=== PATIENT | female | born 1935 | race Caucasian/White ===

== ENCOUNTER 2017-05-26 08:28 | Outpatient (CLI) | payer MEDICARE, BC ==
[2017-05-26 09:03] LABS: Anion Gap 12 mmol/L (10-20); BUN (Urea Nitrogen) 17 mg/dL (9.8-20.1); Calc. Creatinine Clearance 0 mL/min (70-130); Carbon Dioxide 29 mmol/L (23-31); Chloride 101 mmol/L (98-107); Estimated GFR-MDRD 86
--- NOTE | 2017-05-26 12:17 | ULT ---
BILATERAL RENAL SONOGRAM: Date: 05/26/17 HISTORY: Cystic mass left kidney. COMPARISON: CT exam from 03/16/16. FINDINGS: The right kidney is 10.8 cm in length and has a normal appearance without evidence of mass, stone, or hydronephrosis. Urinary bladder is unremarkable. The left kidney is 11.5 cm in length. A 1.8 cm parapelvic cyst correlates with the hyperdense cyst on CT from 1 year ago. No solid masses are evident. No hydronephrosis. IMPRESSION: Allowing for differences in technique, the cyst of the left kidney is stable. No new abnormalities ar e demonstrated. POS: [facility]
== END 2017-05-26 08:29 | disposition home or self-care (01) ==
LOC: ULT 08:28
PROVIDERS: ATTEND Urology
DX: N28.1 Cyst of kidney, acquired (principal); N39.41 Urge incontinence; R33.9 Retention of urine, unspecified; R35.1 Nocturia
CPT/HCPCS: 36415; 76770; 80048

== ENCOUNTER 2017-12-09 11:10 | Observation (INO) | payer MEDICARE ==
[2017-12-09 11:58] LABS: #Basophils 0.1 thou/uL (0.0-0.2); #Eosinphils 0.1 thou/uL (0.0-0.7); #Lymphocytes 1.4 thou/uL (1.20-3.40); #Monocytes 0.3 thou/uL (0.11-0.59); #Neutrophils 4.8 thou/uL (1.40-6.50); %Basophils 0.8 % (0.0-1.0); %Eosinophils 1.3 % (0.0-10.0); %Lymphocytes 21.1 % (21.0-51.0); %Neutrophils 71.8 % (42.0-75.0); Hemoglobin 13.1 g/dL (12.0-16.0); Mean Corpuscular HGB CONC 33.7 g/dL (32.0-36.0); Mean Corpuscular Hemoglobin 29.4 pg (27.0-31.0); Mean Corpuscular Volume 87.3 fl (81.0-99.0); Mean Platelet Volume 6.7 fL (7.4-10.4); Platelet Count 223 thou/uL (130-400); RBC Distribution Width 13.2 % (11.5-14.5); Red Blood Cell (RBC) Count 4.46 mill/uL (4.20-5.40); White Blood Cell (WBC) Count 6.7 thou/uL (4.8-10.8)
[2017-12-09 12:15] LABS: ALT (SGPT) 9 U/L (8-55); AST (SGOT) 17 U/L (5-34); Albumin 4.2 g/dL (3.4-4.8); Alkaline Phosphatase 89 U/L (40-150); Anion Gap 14 mmol/L (10-20); BUN (Urea Nitrogen) 15 mg/dL (9.8-20.1); Bilirubin, Total 0.5 mg/dL (0.2-1.2); Calc. Creatinine Clearance 0 mL/min (70-130); Calcium 10.2 mg/dL (7.8-10.44); Carbon Dioxide 25 mmol/L (23-31); Chloride 101 mmol/L (98-107); Estimated GFR-MDRD Greater than 90; Glucose 97 mg/dL (83-110); Protein, Total 7.2 g/dL (6.0-8.3); Sodium 136 mmol/L (136-145)
[2017-12-09 12:16] LABS: CKMB 0.8 ng/mL (0-6.6); Troponin I Less than 0.010 ng/mL (< 0.028)
[2017-12-09 12:37] LABS: Bilirubin Negative (Negative); Blood, Urine Negative (Negative); Clarity CLEAR (Clear); Glucose, Urine (Dipstick) Negative (Negative); Leukocyte Trace (Negative); Nitrite Negative (Negative); Protein, Urine (Dipstick) Negative (Neg-Trace); Specific Gravity, Urine 1.009 (1.002-1.036); Urobilinogen 0.2 mg/dL (0.2-1.0); pH, Urine 7.5 (5.0-9.0)
[2017-12-09 12:39] LABS: Bacteria/HPF None Seen HPF (None Seen); Hyaline Casts/LPF 0-3 HYALINE CAST LPF (0-3 Hyaline); Pathc Cast-AUWi Flag 0.43 (0-2.49); Squamous Epithelial 0-3 HPF (0-3)
--- NOTE | 2017-12-09 12:44 | RAD ---
UPRIGHT PORTABLE CHEST ONE VIEW: History: 82-year-old female with history of weakness, dizziness, disoriented, left sided temporal headache. Comparison: 03-16-16 FINDINGS: Post-operative changes on the right with right hemidiaphragm elevation. Atherosclerosis of the aorta. Biapical pleural thickening. No confluent pneumonia, overt edema, or pleural effusion. IMPRESSION: Stable right hemidiaphragm elevation and post op changes right chest. No significant new process. Ath erosclerosis of the aorta with ectasia. POS: [facility]
--- NOTE | 2017-12-09 14:44 | HP ---
PRIMARY CARE PHYSICIAN: Dr. Hubert Gutierres. REASON FOR ADMISSION: Dizziness. HISTORY OF PRESENT ILLNESS: An 82-year-old female who has history of hypertension as well as history of DVT and pulmonary embolism on chronic anticoagulation who presented to emergency room with a comp laint of dizziness. The patient reports that she was experiencing 2 times dizzies and near syncopal spell. Patient reports that when she was walking towards the bathroom, she felt that she is going to fell and pass out, but she did not lose consciousness. She was about to fall, but she hold furnitur e and prevented her fall. This type of thing happened twice. Patient was feeling that her head was spinning, but she denies any room spinning. She denies any associated nausea, vomiting, tinnitus. S he denies any associated chest pain, palpitation. She was experiencing mild shortness of breath, but she denies any pleuritic chest pain. She denies any cough. She denies any fever or chills. She de nies any UTI symptoms. Patient also denies any lower extremity edema or calf tenderness. The patien t was feeling off balance couple of times, but she denies any focal motor or sensory symptoms. She d enies any speech problem or difficulty swallowing. In the emergency room, this patient had routine blood test, which was unremarkable. Her urinalysis i s suspected for UTI, but patient denies any UTI symptoms. She denies any constipation, diarrhea, herlinda joy or hematochezia. REVIEW OF SYSTEMS: The following complete review of systems was negative, unless otherwise mentioned in the HPI or below: Constitutional: Weight loss or gain, ability to conduct usual activities. Skin: Rash, itching. Eyes: Double vision, pain. ENT/Mouth: Nose bleeding, neck stiffness, pain, tenderness. Cardiovascular: Palpitations, dyspnea on exertion, orthopnea. Respiratory: Shortness of breath, wheezing, cough, hemoptysis, fever or night sweats. Gastrointestinal: Poor appetite, abdominal pain, heartburn, nausea, vomiting, constipation, or diarr hea. Genitourinary: Urgency, frequency, dysuria, nocturia. Musculoskeletal: Pain, swelling. Neurologic/Psychiatric: Anxiety, depression. Allergy/Immunologic: Skin rash, bleeding tendency. Please see my HPI for pertinent positive and negative. All other review of systems reviewed and nega tive except as mentioned in the HPI. PAST MEDICAL HISTORY: History of false positive stress test in 2009, subsequently patient had cardia c catheterization at [facility] in [place]. At that time, patient was diagnosed with adenocarcinoma of lung, required right lower lobe lobectomy, hypertension, obstructive sleep apnea, m orbid obesity, history of DVT, pulmonary embolism on chronic anticoagulation, chronically elevated le ft hemidiaphragm, carotid atherosclerosis, colonic polyp, osteopenia. PAST SURGICAL HISTORY: Cardiac catheterization which was normal. Right lower lobectomy for adenocar cinoma of lung, appendicectomy, complete hysterectomy, bilateral inguinal hernia repair, vaginal cyst resection, colonoscopy, sling procedure. PAST PSYCHIATRIC HISTORY: Reviewed and negative. ALLERGIES: MORPHINE, CODEINE, KEFLEX, PHENERGAN. SOCIAL HISTORY: Patient lives alone by herself. She does not have any tobacco, alcohol or illicit d rug abuse. She quit smoking in 1987. She ambulates with a walker. CURRENT HOME MEDICATIONS: Atenolol 25 mg p.o. daily, Coumadin 6 mg p.o. daily except Sundays, she ta kes 5 mg, calcium 1200 mg p.o. daily, Tylenol p.r.n. basis. FAMILY HISTORY: No strong family history of premature coronary artery disease, stroke or cancer. EMERGENCY ROOM COURSE: Reviewed. PHYSICAL EXAMINATION: VITAL SIGNS: On arrival, blood pressure 160/80, pulse 82, respiratory rate 18, temperature 98.1, sat uration 96% on room air, weight 86.2 kilograms. GENERAL: Patient is currently alert, awake, no obvious acute distress. HEAD: Normocephalic, atraumatic. EYES: Pupils round, reactive to light. Extraocular muscle intact. ENT: Oropharynx within normal limits. Moist mucous membrane, no oral lesion, no pharyngeal erythema , no exudate. NECK: Supple, no JVD, no thyromegaly, no carotid bruit, no jugular venous distention. LUNGS: Clear to auscultation without any rhonchi or rales. CARDIAC: S1 and S2 regular. No murmur, no gallop, no rub. ABDOMEN: Obesity present. Bowel sounds present, nontender, nondistended. No organomegaly, no mass, no suprapubic tenderness. BACK: Examination unremarkable, no CVA tenderness. EXTREMITIES: Upper extremity passive movement of all joints are normal. Lower extremities: Bilater al lower extremity chronic venous stasis changes with stasis dermatitis on both lower extremities. G ood distal pulsation, no calf tenderness. SKIN: No skin rash. HEMATOLOGICAL SYSTEM: No lymphadenopathy. PSYCHIATRIC: Normal affect. NEUROLOGIC: The patient is alert and oriented x3. Cranial nerves II-XII intact. Motor 5/5 in all f our limbs. Sensation bilaterally symmetrical. No cerebellar sign. Speech normal. Plantar bilatera l flexor. No cerebellar sign. IMAGING DATA AND SIGNIFICANT LABORATORY DATA: 1. EKG showing complete right bundle branch block pattern. 2. Chest x-ray based on my review, no acute cardiopulmonary process. 3. CBC: WBC 6.7, hemoglobin 13.1, platelet 223. 4. BMP: Sodium 136, potassium 4.0, chloride 101, carbon dioxide 25, BUN 15, creatinine 0.63, glucos e 97, calcium 10.2. 5. LFT: AST 17, ALT 9, alkaline phosphatase 89, albumin 4.2, CK-MB 0.8, troponin I less than 0.010. Urinalysis: Leukocyte esterase trace. ASSESSMENT AND PLAN/IMPRESSION: 1. Dizziness. Etiology is not clearcut at this point. Clinically, patient's description is not con sistent with vestibular symptoms or peripheral etiology. Clinically, patient does not have any centr al etiology of dizziness like she does not have any cerebellar sign. She is hypertensive, but we allan l rule out orthostatic hypotension. Underlying cardiac arrhythmia is possible, but at this point, he r EKG and manager applied in the emergency room so far negative. We will monitor in telemetry floo r for another 24 hours and we will obtain echocardiography to assess ejection fraction and other stru ctural abnormality. We will do serial cardiac enzymes and rule out acute coronary syndrome. We will try treating her with Antivert 25 mg t.i.d. p.r.n. basis. We will check D-dimer and if D-dimer is a bnormal, then we will consider doing CT angio to rule out ongoing pulmonary embolism. We will also c heck PT/INR. Patient will continue her warfarin therapy. We will check for stool for guaiac if samp le available. 2. Hypertension and rule out orthostatic hypertension. Continue atenolol 25 mg p.o. daily. 3. History of deep venous thrombosis and pulmonary embolism. Continue warfarin 6 mg p.o. daily and we will check PT/INR on daily basis. 4. Morbid obesity. Dietary education given. Weight loss education given. Healthy lifestyle measur es discussed with the patient. 5. Obstructive sleep apnea. Patient can use her home CPAP machine while in hospital. 6. Deep venous thrombosis prophylaxis. The patient is already on warfarin therapy. 7. Gastrointestinal prophylaxis. Pepcid 20 mg p.o. b.i.d. CODE STATUS: Patient is FULL CODE. Patient's daughter is surrogate decision maker. Disposition plan based on clinical course, likely within 24 hours. Plan of care discussed with the p woody in detail.
[2017-12-09] MEDS ORDERED: Artificial Tear Sol 15 ML BOT EA EYE PRN (15:08)
[2017-12-09] MEDS ORDERED: Loperamide HCl 2 MG CAP PO PRN (15:08)
[2017-12-09] MEDS ORDERED: Sodium Chloride 0.65% Nasal 44 ML BOT EA NARE PRN (15:08)
[2017-12-09] MEDS ORDERED: Chloraseptic Spray 180 ml Bottle PO PRN (15:08)
[2017-12-09] MEDS ORDERED: Zolpidem Tartrate 5 MG TAB PO PRN (15:08)
[2017-12-09] MEDS ORDERED: hydrALAZINE 20 MG/ML VIAL SLOW IVP PRN (15:08)
[2017-12-09] MEDS ORDERED: Milk Of Magnesia 30 ML UDCUP PO PRN (15:08)
[2017-12-09] MEDS ORDERED: Loratadine 10 MG TAB PO PRN (15:08)
[2017-12-09] MEDS ORDERED: Eucerin (Mineral Oil/Petrolatum,White) 30 gm Jar TOP PRN (15:08)
[2017-12-09] MEDS ORDERED: Mag-Al 1200 mg/1200 mg/30 ML UDCUP PO PRN (15:08)
[2017-12-09] MEDS ORDERED: Acetaminophen 325 MG TAB PO PRN (15:08)
[2017-12-09] MEDS ORDERED: Diabetic Tussin 200 MG/10 ML UDCUP PO PRN (15:08)
[2017-12-09] MEDS ORDERED: Ondansetron HCl/PF 4 MG/2 ML Vial IVP PRN (15:08)
[2017-12-09] MEDS ORDERED: Senokot 8.6 MG TAB PO PRN (15:08)
[2017-12-09] MEDS ORDERED: Ondansetron ODT 4 MG TAB PO PRN (15:08)
[2017-12-09] MEDS ORDERED: Meclizine HCl 25 MG TAB PO PRN (15:08)
[2017-12-09 15:30] LABS: INR-International Normal Ratio 2.3; Prothrombin Time 26.2 SEC (12.0-14.7)
[2017-12-09 15:32] LABS: D-Dimer Test Less than 0.27 *mcg/mL (0.27-0.43)
[2017-12-09 15:59] LABS: Troponin I Less than 0.010 ng/mL (< 0.028)
[2017-12-09] MEDS ORDERED: Warfarin Sodium 3 MG TAB PO SCH (17:00)
[2017-12-09 18:52] LABS: Troponin I Less than 0.010 ng/mL (< 0.028)
[2017-12-09] MEDS: Famotidine 20 MG TAB PO SCH (20:37)
[2017-12-10 04:34] LABS: INR-International Normal Ratio 2.5; Prothrombin Time 27.9 SEC (12.0-14.7)
[2017-12-10 08:08] VITALS: TEMP 98
[2017-12-10] MEDS: Famotidine 20 MG TAB PO SCH (08:49)
[2017-12-10] MEDS ORDERED: Calcium Carbonate 600 MG TAB PO SCH (09:00)
[2017-12-10] MEDS ORDERED: Atenolol 25 MG TAB PO SCH (09:00)
--- NOTE | 2017-12-10 10:17 | DIS ---
DATE OF ADMISSION: 12/09/2017 DATE OF DISCHARGE: 12/10/2017 PRIMARY CARE PHYSICIAN: [facility] call admission. DISCHARGE DISPOSITION: Home. PRIMARY DISCHARGE DIAGNOSIS: Dizziness, unexplained. SECONDARY DISCHARGE DIAGNOSES: Hypertension, history of deep venous thrombosis and pulmonary embolis m, chronic anticoagulation with warfarin, morbid obesity, and obstructive sleep apnea. PRIMARY PROCEDURES/OPERATIONS: None. RADIOLOGICAL INVESTIGATION: Chest x-ray on admission showed no acute cardiopulmonary process. Echoc ardiography showed EF 50%-55%, moderate tricuspid regurgitation. SIGNIFICANT LABORATORY DATA: WBC 6.7, hemoglobin 13.1, platelet 223. D-dimer less than 0.27. INR 2 .5. BMP, LFT and cardiac enzyme normal. Urinalysis; leukocyte esterase trace. Urine culture negati ve. DISCHARGE MEDICATIONS: Tylenol 325 mg p.o. q.6 hourly p.r.n., Tenormin 25 mg p.o. daily, Antivert 25 mg p.o. q.8 hourly p.r.n., warfarin 6 mg p.o. daily and on Friday 5 mg daily. CONTRAINDICATIONS: None. CODE STATUS: FULL CODE. INPATIENT CONSULTANTS: None. ALLERGIES: KEFLEX, CODEINE, and MORPHINE. DISCHARGE PLAN: Post hospital, patient will follow up with primary care physician in 1 week. HOSPITAL COURSE: An 82-year-old female who lives at home by herself and she was experiencing dizzine ss. She was feeling off balance, but she never had any fall or she never had any complete loss of co nsciousness. She was brought to emergency room for evaluation. In the emergency room, all workup in cluding CBC, BMP, LFT, cardiac enzyme and EKG was unremarkable. Chest x-ray was also unremarkable. We kept this patient in the hospital for further evaluation. Her residential monitor is normal. Subse quent cardiac enzymes negative. Echocardiography also showed moderate tricuspid regurgitation with n ormal EF. We also checked orthostatic vitals that were also unexplained and negative for orthostatic hypotension. Her urine culture remained negative. She remained hemodynamically stable. At this po int, her dizziness is unexplained, but we are trying empirically with Antivert. Necessary patient ed ucation about fall precaution is given and PT evaluation is done. The patient is seen and examined at bedside today. PHYSICAL EXAMINATION: VITAL SIGNS: Currently, temperature 98.0, pulse 72, respiratory rate 18, saturation 94% on room air, blood pressure 142/83. GENERAL: The patient is currently alert, awake, no obvious acute distress. HEAD: Normocephalic, atraumatic. EYES: Pupils round, reactive to light. Extraocular muscle intact. ENT: Oropharynx within normal limits. Moist mucous membrane, no oral lesion. NECK: Supple, no JVD, no thyromegaly, no carotid bruit. LUNGS: Clear to auscultation without any rhonchi or rales. CARDIAC: S1, S2 regular without any murmur. ABDOMEN: Soft and benign. Obesity present. EXTREMITIES: No edema. NEUROLOGIC: Nonfocal examination. No cerebellar sign. The patient is medically stable for discharge today. New medication prescription sent to her pharmac y.
[2017-12-11 11:45] VITALS: BP 111/57
== END 2017-12-10 11:57 | disposition home or self-care (01) ==
LOC: ERS 11:10 → 2SW 15:07
PROVIDERS: ADMIT Internal Medicine; ATTEND Internal Medicine
DX: R42 Dizziness and giddiness (principal); R55 Syncope and collapse; I10 Essential (primary) hypertension; G47.33 Obstructive sleep apnea (adult) (pediatric); M85.80 Other specified disorders of bone density and structure, unspecified site; I65.29 Occlusion and stenosis of unspecified carotid artery; E66.01 Morbid (severe) obesity due to excess calories; Z87.891 Personal history of nicotine dependence; Z86.718 Personal history of other venous thrombosis and embolism; Z86.711 Personal history of pulmonary embolism; Z85.118 Personal history of other malignant neoplasm of bronchus and lung; Z79.01 Long term (current) use of anticoagulants; Z79.899 Other long term (current) drug therapy; Z88.5 Allergy status to narcotic agent; Z88.1 Allergy status to other antibiotic agents; Z88.8 Allergy status to other drugs, medicaments and biological substances
CPT/HCPCS: 71045; 80053; 82553; 84484 ×2; 85025; 85379; 85610 ×2; 87086; 93005; 93306; 94660; 97116; 97139; 99285; G0378; G8978; G8979; G8980; 36415; 81003; 81015